=== PATIENT | female | born 1965 | race Caucasian/White ===

== ENCOUNTER 2024-07-21 21:09 | Emergency (ER) | payer BC, OTHER ==
[2024-07-21 21:14] VITALS: BP 160/65; PULSE 74; RESP 18; TEMP 98.4; BMI 22.8
== END 2024-07-21 22:00 | disposition home or self-care (01) ==
LOC: JERFT 21:09
PROC: 0HQ1XZZ Repair Face Skin, External Approach (ICD-10-PCS; principal; 2024-07-21)
DX: S01.81XA Laceration without foreign body of other part of head, initial encounter (principal); S61.412A Laceration without foreign body of left hand, initial encounter; W25.XXXA Contact with sharp glass, initial encounter
CPT/HCPCS: 99282-25